=== PATIENT | male | born 1995 | race African-American/Black ===

== ENCOUNTER 2017-07-02 15:24 | Emergency (ER) | payer OTHER ==
[~2017-07-02] VITALS: Ht 185.4 cm; Wt 102.1 kg
[~2017-07-02 15:24] MED LIST: ABILIFY5 MG PO; ADDERALL XR 2020 MG PO; BACTRIM,SEPT1 TABLET PO; LEXAPRO10 MG PO; MOTRIN800 MG PO; NORCO 5/3251 TABLET PO; PROZAC20 MG PO; STRATTERA80 MG PO
[2017-07-02] MEDS ORDERED: MOTRIN800 MG PO (17:56)
[2017-07-02] MEDS ORDERED: NORCO 7.5/321 TABLET PO (17:56)
[2017-07-02 18:38] VITALS: BP 118/70
== END 2017-07-02 18:39 | disposition home or self-care (01) ==
LOC: EME 15:24
DX: S83.412A Sprain of medial collateral ligament of left knee, initial encounter (principal); Y93.67 Activity, basketball; Z86.74 Personal history of sudden cardiac arrest; Z87.891 Personal history of nicotine dependence
CPT/HCPCS: 73564; 99281; 99283

== ENCOUNTER 2017-08-21 10:36 | Emergency (ER) | payer OTHER ==
[~2017-08-21] VITALS: Ht 182.9 cm; Wt 105.7 kg
[~2017-08-21 10:36] MED LIST changes: +NORCO 7.5/321 TABLET PO
[2017-08-21 14:25] VITALS: BP 115/86
== END 2017-08-21 14:25 | disposition home or self-care (01) ==
LOC: EME 10:36
PROC: 0HQGXZZ Repair Left Hand Skin, External Approach (ICD-10-PCS; principal; 2017-08-21)
DX: S61.012A Laceration without foreign body of left thumb without damage to nail, initial encounter (principal); F17.200 Nicotine dependence, unspecified, uncomplicated; W26.0XXA Contact with knife, initial encounter; Y93.G3 Activity, cooking and baking
CPT/HCPCS: 73140

== ENCOUNTER 2017-09-17 00:59 | Emergency (ER) | payer OTHER ==
[~2017-09-17] VITALS: Ht 182.9 cm; Wt 102.2 kg
[2017-09-17 01:45] LABS: HEMATOCRIT 37.7 % (38.0-50.0); HEMOGLOBIN 13.2 G/DL (12.5-16.6); MCH 31.8 PG (29.0-34.0); MCV 90.8 FL (86-99); PLATELET COUNT 205 K/uL (156-360); RBC DIS.WIDTH-CV 11.4 % (11.8-14.6); RBC DIS.WIDTH-SD 38.1 % (39-53); RED BLOOD COUNT 4.15 M/uL (4.00-5.50); WHITE BLOOD COUNT 6.4 K/uL (4.1-10.2)
[2017-09-17 01:55] LABS: CHLORIDE 101 mEq/L (99-109); POTASSIUM 3.8 mEq/L (3.7-5.4); SODIUM 136 mEq/L (136-147)
[2017-09-17 01:56] LABS: GLUCOSE 115 mg/dL (70-99)
[2017-09-17 02:00] LABS: CREATININE 1.1 mg/dL (0.6-1.3); GFR ESTIMATE (CALCULATED) > 59 mL/min/ (58.99-99999)
[2017-09-17 02:01] LABS: UREA NITROGEN (BUN) 19 mg/dL (9-23)
[2017-09-17 03:33] VITALS: BP 122/59
== END 2017-09-17 03:35 | disposition home or self-care (01) ==
LOC: EME 00:59 → EXP 00:59
PROVIDERS: Physician Assistant
DX: R50.9 Fever, unspecified (principal); G89.18 Other acute postprocedural pain; M79.605 Pain in left leg; Z98.890 Other specified postprocedural states; R51 Headache; S61.012D Laceration without foreign body of left thumb without damage to nail, subsequent encounter; W45.8XXD Other foreign body or object entering through skin, subsequent encounter; Z48.02 Encounter for removal of sutures; F17.200 Nicotine dependence, unspecified, uncomplicated
CPT/HCPCS: 80048; 83605; 85027; 87040; 87502; 87651 90; 93971; 99281; 99284